=== PATIENT | female | born 1965 | race Caucasian/White ===

== ENCOUNTER 2025-06-04 21:50 | Emergency (ER) | payer OTHER ==
[~2025-06-04] VITALS: Ht 167.6 cm; Wt 54.4 kg
[2025-06-04 22:06] VITALS: BP 131/82; TEMP 98; O2SAT 98
== END 2025-06-04 22:35 | disposition left against medical advice (07) ==
LOC: ER 21:54
DX: H92.01 Otalgia, right ear (principal); Z53.21 Procedure and treatment not carried out due to patient leaving prior to being seen by health care provider